=== PATIENT | female | born 1990 | race Caucasian/White ===

== ENCOUNTER 2022-04-02 23:51 | Emergency (ER) | payer BC, SELFPAY ==
[2022-04-03 00:19] VITALS: BP 118/99; PULSE 69; RESP 26; TEMP 36.1; O2SAT 100
--- NOTE | 2022-04-03 00:51 | ED_ITS ---
HPI - General Adult General Chief complaint: Nausea/Vomiting Stated complaint: Vomiting, body feels numb Time Seen by Provider: 04/03/22 00:41 Source: patient Limitations: no limitations History of Present Illness HPI narrative: 31-year-old female arrives to the emergency department with vomiting for the past 4 hours, shaking of her hands, feeling like her breathing is very rapid. No fevers. Reports normal eating and drinking through the day until this evening. Now notes diffuse abdominal pain that started after vomiting. Has not tried any Tylenol, ibuprofen or GI medications to help with her symptoms. No injury or trauma. Feels like she might be getting dehydrated. She says that her symptoms are similar to when she had alcohol poisoning several years ago, denies any alcohol or other illicit substance or toxic ingestions today. No recent sick contacts, no pertinent travel, no recent use of antibiotics. Denies hematemesis, blood in her stools. Is having loose stools as well. Admits to history of anxiety, some bilateral hand tingling and tingling around her lips as well. Again it is symmetric. Triple swab collected by nursing team prior to my arrival. States that her menses are a few days late but she did take the morning after pill 2 times this cycle. Does not feel as though she could give a urine sample. Past medical history notable for OCD and anxiety, takes 20 mg of Lexapro daily, denies any drug allergies. Denies prior surgeries. Socially denies alcohol, illicit substance ingestion or pertinent exposures. ROS notable for the GI, generalized and neurological symptoms as above, otherwise denies times 12 systems. Related Data Previous Rx's Medication Instructions Recorded escitalopram oxalate 10 mg tablet 10 mg PO QDAY #30 tabs 08/29/21 Allergies Allergy/AdvReac Type Severity Reaction Status Date / Time No Known Drug Allergies Allergy Verified 04/03/22 00:24 [facility] Medical History Anxiety Exam Const: Vital Signs, click to edit/add: Vital Signs - 24 hr 04/03/22 00:19 Temperature 96.9 F L Pulse Rate [Left P ulse Oximeter] 69 Respiratory Rate 26 H Blood Pressure [Ri ght Upper Arm] 118/99 H Pulse Oximetry 100 Oxygen Delivery Me thod Room Air Documenting provider has reviewed patient's vital signs: yes General appearance: well kempt Other: Very anxious, limited insight. Appears well nourished well hydrated, well kept HENMT: Common normals: normocephalic and head/scalp atraumatic Head and scalp: normocephalic and atraumatic Mouth: oral and palatal mucosa normal Throat: posterior oropharynx normal Eye: Common normals: conjunctivae normal General eye: normal appearance of both eyes Conjunctiva: conjunctiva(e) normal Neck & C-Spine: Common normals: full ROM and no lymphadenopathy Resp: Common normals: normal respiratory effort, no use of accessory muscles and clear to auscultation bilaterally Effort & inspection: able to speak in complete sentences Auscultation: clear to auscultation bilaterally Cardio: Common normals: regular rate, regular rhythm, S1 normal heart sound, S2 normal heart sound, no murmurs and peripheral pulses 2+ throughout Rate: regular rate Rhythm: regular rhythm Heart sounds: S1 normal and S2 normal Peripheral pulses: pulses 2+ throughout GI: Common normals: Normal to inspection, nondistended, normoactive bowel sounds present, soft to palpation, non-tender, no hepatosplenomegaly and no masses Palpation: soft and no hepatosplenomegaly Back & Pelvis: Common normals: thoracic and lumbar spine normal to inspection Extremity: Common normals: normal to inspection, normal capillary refill and no pedal edema Neuro: Motor exam: strength 5/5 throughout, no tremor noted and no movement abnormalities noted Psych: Appearance: well kempt Activity/motor behavior: restless Mood and affect: anxious Insight: limited Judgement: fair Skin: Common normals: no rashes or lesions noted General skin exam: no rashes or lesions noted Course Vital Signs Vital signs: Initial Vital Signs Temperature 96.9 F L 04/03/22 00:19 Temperature Source Temporal Artery Scan 04/03/22 00:19 Pulse Rate 69 04/03/22 00:19 Pulse Rhythm 04/03/22 00:19 Respiratory Rate 26 H 04/03/22 00:19 Blood Pressure 118/99 H 04/03/22 00:19 Blood Pressure Mean 105 04/03/22 00:19 Blood Pressure Position Semi-Fowlers 04/03/22 00:19 Pulse Oximetry 100 04/03/22 00:19 Oxygen Delivery Method 04/03/22 00:19 Vital Signs Temperature 96.9 F L 04/03/22 00:19 Pulse Rate 69 04/03/22 00:19 Respiratory Rate 26 H 04/03/22 00:19 Blood Pressure 118/99 H 04/03/22 00:19 Pulse Oximetry 100 04/03/22 00:19 Oxygen Delivery Method 04/03/22 00:19 Temperature 96.9 F L 04/03/22 00:19 Pulse Rate 69 04/03/22 00:19 Respiratory Rate 26 H 04/03/22 00:19 Blood Pressure 118/99 H 04/03/22 00:19 Pulse Oximetry 100 04/03/22 00:19 Oxygen Delivery Method 04/03/22 00:19 Medical Decision Making MDM Narrative Medical decision making narrative: Patient has not had any vomiting while at our facility. She is finishing up her IV fluids and reports that she still feels nauseated. We review her symptoms and is quite clear that she is having anxiety. Negative test noted. Will give 0.5 mg of Ativan. Labs showing very mild elevation of glucose, encouraged her to follow up with primary care provider for fasting glucose, A1c and other screening for diabetes. Do not suspect that this has anything to do with her current symptoms. Advised to avoid alcohol for the next week, counseled on brat diet, fluid intake. Oral Zofran will be given for p.r.n. use. Reviewed alarm symptoms that would warrant repeat ED presentation. She verbalizes understanding and agreement. Lab Data Lab results reviewed: Yes I reviewed the patient's lab results Lab results narrative: Mild elevation of blood sugars not thought to be clinically significant. Suspect gastroenteritis. Patient has not had any vomiting while in our care. Labs: Lab Results 04/03/22 04/03/22 04/03/22 Range/Units 00:30 01:07 01:07 WBC 12.38 H (4.50-11.00) K/uL RBC 5.19 (4.00-5.20) m/uL Hgb 14.8 (12.0-16.0) gm/dL Hct 44.1 (33.0-51.0) % MCV 85 (80-100) fL MCH 29 (26-34) pg MCHC 34 (32-36) gm/dL RDW Coeff of Elaina 13.0 (11.5-15.5) % Plt Count 216 (140-440) K/uL Neut % (Auto) 90.8 H (42.0-72.0) % Lymph % (Auto) 5.3 L (20-44) % [place] % (Auto) 3.2 (0.0-11.0) % Eos % (Auto) 0.3 (0.0-7.0) % Baso % (Auto) 0.2 (0.0-3.0) % Neut # (Auto) 11.20 H (1.7-7.0) K/uL Lymph # (Auto) 0.70 L (0.90-2.90) K/uL [place] # (Auto) 0.40 (0.00-0.90) K/UL Eos # (Auto) 0.00 (0.00-0.50) K/uL Baso # (Auto) 0.00 (0.00-0.30) K/uL Sodium 139 (135-149) mmol/L Potassium 4.2 (3.6-5.1) mmol/L Chloride 109 (96-114) mmol/L Carbon Dioxide 16 L (20-32) mmol/L BUN 19 (5-24) mg/dL Creatinine 0.7 (0.5-1.5) mg/dL Estimated GFR 118 ml/min Glucose 230 H (60-115) mg/dL Calcium 9.3 (8.4-10.6) mg/dL Total Bilirubin 0.7 (0.1-1.5) mg/dL AST 40 H (12-35) U/L ALT 31 (4-35) U/L Alkaline Phosphatase 66 (40-150) U/L C-Reactive Protein < 0.5 L (0.5-1.0) mg/dL Total Protein 8.3 (6.0-8.3) g/dL Albumin 5.0 (3.3-5.0) g/dL Lipase 301 H (23-300) U/L HCG, Qual (Negative) Ethyl Alcohol < 0.01 L (0.01-0.03) % SARS-CoV-2 (PCR) Negative SARS-CoV-2 (Negative) Influenza Type A (PCR) Negative PCR FLU A (Negative) Influenza Type B (PCR) Negative PCR FLU B (Negative) RSV (PCR) Negative PCR RSV (Negative) 02/15/23 Range/Units 01:07 WBC (4.50-11.00) K/uL RBC (4.00-5.20) m/uL Hgb (12.0-16.0) gm/dL Hct (33.0-51.0) % MCV (80-100) fL MCH (26-34) pg MCHC (32-36) gm/dL RDW Coeff of Elaina (11.5-15.5) % Plt Count (140-440) K/uL Neut % (Auto) (42.0-72.0) % Lymph % (Auto) (20-44) % [place] % (Auto) (0.0-11.0) % Eos % (Auto) (0.0-7.0) % Baso % (Auto) (0.0-3.0) % Neut # (Auto) (1.7-7.0) K/uL Lymph # (Auto) (0.90-2.90) K/uL [place] # (Auto) (0.00-0.90) K/UL Eos # (Auto) (0.00-0.50) K/uL Baso # (Auto) (0.00-0.30) K/uL Sodium (135-149) mmol/L Potassium (3.6-5.1) mmol/L Chloride (96-114) mmol/L Carbon Dioxide (20-32) mmol/L BUN (5-24) mg/dL Creatinine (0.5-1.5) mg/dL Estimated GFR ml/min Glucose (60-115) mg/dL Calcium (8.4-10.6) mg/dL Total Bilirubin (0.1-1.5) mg/dL AST (12-35) U/L ALT (4-35) U/L Alkaline Phosphatase (40-150) U/L C-Reactive Protein (0.5-1.0) mg/dL Total Protein (6.0-8.3) g/dL Albumin (3.3-5.0) g/dL Lipase (23-300) U/L HCG, Qual Negative (Negative) Ethyl Alcohol (0.01-0.03) % SARS-CoV-2 (PCR) (Negative) Influenza Type A (PCR) (Negative) Influenza Type B (PCR) (Negative) RSV (PCR) (Negative) Discharge Plan Discharge Clinical Impression: Anxiety, Gastroenteritis Patient Disposition: Home, Self-Care Condition: Improved Instructions: Acute Nausea and Vomiting (ED) Additional Instructions: Labs are overall reassuring. Your blood sugars mildly elevated. As we discussed, this has nothing to do with your symptoms today, but I would recommend that you be screened for diabetes in the clinic. This is often done with a fasting blood sugar and or an A1c blood test. You should have this done within the next few months. Your symptoms are likely caused by a virus and will improve in a few days. In the meantime, slip slowly on fluids, increasing the amount as tolerated. Avoid alcohol. Begin with soft, bland foods that are easily digestible and then advance as tolerated over the next couple of days. I have given you a supply of Zofran, and anti nausea medicine. He may take this up to every 6 hours. 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 Okay to use Tylenol and/or ibuprofen as needed for fever. There should not be any severe pain associated with this illness. If you are unable to hold down any liquids for 24 hours, he should come back to the emergency department. Your test was also negative. Follow up with her primary care provider if not starting to improve in 3 days. Activity Level: Activity as Tolerated Discharge Diet: Regular Prescriptions: No Action escitalopram oxalate 10 mg tablet 10 mg PO QDAY Qty: 30 3RF Follow Up/Referrals: Erica Noe PA [Primary Care Provider] - Stand Alone Forms: [employer] Info Instructions
[2022-04-03] MEDS: ONDANSETRON 2 MG/ML inj 4 MG IVP (01:08)
[2022-04-03] MEDS: LACTATED RINGERS 1000 ML 1,000 ML IV (01:08)
[2022-04-03 01:12] LABS: PCR FLU A Negative PCR FLU A (Negative); PCR FLU B Negative PCR FLU B (Negative); PCR RSV Negative PCR RSV (Negative)
[2022-04-03 01:16] LABS: Basophils Percent Auto 0.2 % (0.0-3.0); Eosinophils Percent Auto 0.3 % (0.0-7.0); Hematocrit 44.1 % (33.0-51.0); Hemoglobin* 14.8 gm/dL (12.0-16.0); Immature Granulocytes Pct Auto 0.2 %; Lymphocytes Percent Auto 5.3 % (20-44); Mean Corpuscular HGB Conc 34 gm/dL (32-36); Mean Corpuscular Hemoglobin 29 pg (26-34); Mean Corpuscular Volume 85 fL (80-100); Monocytes Percent Auto 3.2 % (0.0-11.0); Neutrophils Percent Auto 90.8 % (42.0-72.0); Platelet Count* 216 K/uL (140-440); Red Blood Count 5.19 m/uL (4.00-5.20); White Blood Count* 12.38 K/uL (4.50-11.00)
[2022-04-03 01:18] LABS: Slide Review Reflex No
[2022-04-03 01:21] LABS: SARS PCR* Negative SARS-CoV-2 (Negative)
[2022-04-03 01:28] LABS: Chloride* 109 mmol/L (96-114); Potassium* 4.2 mmol/L (3.6-5.1); Sodium* 139 mmol/L (135-149)
[2022-04-03 01:30] LABS: Creatinine* 0.7 mg/dL (0.5-1.5); Estimated Glomerular Filt Rate 118 ml/min
[2022-04-03 01:31] LABS: Alanine Aminotransferase* 31 U/L (4-35); Alkaline Phosphatase* 66 U/L (40-150); Aspartate Amino Transferase* 40 U/L (12-35); Bilirubin Total* 0.7 mg/dL (0.1-1.5); Blood Urea Nitrogen* 19 mg/dL (5-24); Calcium* 9.3 mg/dL (8.4-10.6); Carbon Dioxide* 16 mmol/L (20-32); Glucose* 230 mg/dL (60-115); Lipase* 301 U/L (23-300); Total Protein* 8.3 g/dL (6.0-8.3)
[2022-04-03 01:33] LABS: Ethanol* < 0.01 % (0.01-0.03); HCG Qualitative Serum* Negative (Negative)
[2022-04-03 01:41] LABS: C Reactive Protein* < 0.5 mg/dL (0.5-1.0)
[2022-04-03] MEDS: LORazepam 2 MG/ML inj 0.5 MG IVP (02:00)
[2022-04-03 02:30] VITALS: BP 118/64; PULSE 68; RESP 18; O2SAT 99
== END 2022-04-03 02:32 | disposition home or self-care (01) ==
PROVIDERS: Emergency Provider Family Medicine; PCP Physician Assistant
DX: K52.9 Noninfective gastroenteritis and colitis, unspecified (principal); F41.9 Anxiety disorder, unspecified
CPT/HCPCS: 36415; 80053; 82077; 83690; 84703; 85025; 86140; 87502; 87634; 87635; 96374; 96375; 99283; 99284; J2060; J2405; J7120